=== PATIENT | male | born 1975 | race African-American/Black ===

== ENCOUNTER 2017-06-12 12:50 | Emergency (ER) | payer BC ==
--- NOTE | 2017-06-12 13:08 | EDM.PDOC ---
ED HPI GENERAL MEDICAL PROBLEM - General Stated Complaint: PAIN TO RIGHT POINTER FINGER Time Seen by Provider: 06/12/17 12:52 - History of Present Illness INITIAL COMMENTS - FREE TEXT/NARRATIVE: HISTORY AND PHYSICAL: History of present illness: Patient 42-year-old black male presents concern of frostbite to the second digit of his right hand that occurred on Tuesday this did involve other digits which have improved significantly. This one has blistering and has had some scant serous discharge he had no fever chills nausea vomiting or other complaints Review of systems: As per history of present illness and below otherwise all systems reviewed and negative. Past medical history: As per history of present illness and as reviewed below otherwise noncontributory. Surgical history: As per history of present illness and as reviewed below otherwise noncontributory. Social history: No reported history of drug or alcohol abuse. Family history: As per history of present illness and as reviewed below otherwise noncontributory. Physical exam: HEENT: Atraumatic, normocephalic, pupils reactive, negative for conjunctival pallor or scleral icterus, mucous membranes moist, throat clear, neck supple, nontender, trachea midline. Lungs: Clear to auscultation, breath sounds equal bilaterally, chest nontender. Heart: S1S2, regular, negative for clicks, rubs, or JVD. Abdomen: Soft, nondistended, nontender. Negative for masses or hepatosplenomegaly. Negative for costovertebral tenderness. Pelvis: Stable nontender. Genitourinary: Deferred. Rectal: Deferred. Extremities: Frostbite involving the distal phalanx of the second digit of his right hand noted there is pallor and obvious thermal injury. Neuro: Awake, alert, oriented. Cranial nerves II through XII unremarkable. Cerebellum unremarkable. Motor and sensory unremarkable throughout. Exam nonfocal. Diagnostics: X-ray Therapeutics: Dry dressing Impression: #1 frostbite right hand (second digit) Definitive disposition and diagnosis as appropriate pending reevaluation and review of above. ED ROS GENERAL - Review of Systems Review Of Systems: ROS reveals no pertinent complaints other than HPI. ED EXAM, GENERAL - Physical Exam Exam: See Below (See dictation) Course - Orders/Labs/Meds Orders: Active Orders 24 hr Category Date Time Status Hand 2V Rt [CR] Stat Exams 06/12/17 12:54 Ordered Departure - Departure Time of Disposition: 13:07 Disposition: Home, Self-Care 01 Clinical Impression: Frostbite - Discharge Information Referrals: Keshia Suarez MD [Primary Care Provider] - Additional Instructions: The following information is given to patients seen in the emergency department who are being discharged to home. This information is to outline your options for follow-up care. We provide all patients seen in our emergency department with a follow-up referral. The need for follow-up, as well as the timing and circumstances, are variable depending upon the specifics of your emergency department visit. If you don't have a primary care physician on staff, we will provide you with a referral. We always advise you to contact your personal physician following an emergency department visit to inform them of the circumstance of the visit and for follow-up with them and/or the need for any referrals to a consulting specialist. The emergency department will also refer you to a specialist when appropriate. This referral assures that you have the opportunity for followup care with a specialist. All of these measure are taken in an effort to provide you with optimal care, which includes your followup. Under all circumstances we always encourage you to contact your private physician who remains a resource for coordinating your care. When calling for followup care, please make the office aware that this follow-up is from your recent emergency room visit. If for any reason you are refused follow-up, please contact the [facility] emergency department at and asked to speak to the emergency department charge nurse. [facility] specialty [facility]-Plastics [address] [place] [id number] [address] as directed keep dressing clean and dry call to schedule appointment with hand surgery above return as needed as discussed - My Orders Last 24 Hours: My Active Orders 06/12/17 12:54 Hand 2V Rt [CR] Stat - Assessment/Plan Last 24 Hours: My Active Orders 06/12/17 12:54 Hand 2V Rt [CR] Stat
--- NOTE | 2017-06-13 19:04 | CR ---
EXAM DATE: 06/12/17 PATIENT'S AGE: 42 Patient: MIRELA ELIZALDE Facility: [place], [place] Site . Site : [id number] Study: XRay Extremity Right hand [id number]/[id number] 1:17:02 PM Ordering Physician: Doctor Suazo Final Report: Right hand 2 VIEWS INDICATION: Pain. IMPRESSION: No visualized fracture. Alignments anatomic. No additional osseous lesion. Localized swelling is present at the distal 2nd digit. No radiopaque foreign body. No gas within the soft tissues. Dictated by Sherman Alcantara MD @ Jun 12 2017 1:43PM (Electronic Signature) Report Signed by Proxy. JOSE G
== END 2017-06-12 14:07 | disposition home or self-care (01) ==
LOC: MW.ED 12:50
DX: T33.531A Superficial frostbite of right finger(s), initial encounter (principal); X31.XXXA Exposure to excessive natural cold, initial encounter
CPT/HCPCS: 73120-26-RT; 73120-RT; 99283